=== PATIENT | female | born 1975 | race Caucasian/White ===

== ENCOUNTER 2018-01-08 09:15 | Emergency (ER) | payer OTHER ==
[2018-01-08] MEDS ORDERED: Ketorolac Tromethamine 30 MG/ML VIAL ONE (10:34)
--- NOTE | 2018-01-08 10:51 | RAD ---
TWO VIEW CHEST: Comparison: None. Indication: Chest pain, left rib pain for two months. FINDINGS: There is no consolidation, effusion, or pneumothorax. No free air beneath the hemidiaphragms. Cardiac silhouette is normal in size. Osseous structures are intact. IMPRESSION: No focal consolidation. POS: [facility]
--- NOTE | 2018-01-10 19:54 | EKG ---
Test Reason : Blood Pressure : / mmHG Vent. Rate : 063 BPM Atrial Rate : 063 BPM P-R Int : 126 ms QRS Dur : 102 ms QT Int : 406 ms P-R-T Axes : 046 032 041 degrees QTc Int : 415 ms Normal sinus rhythm Normal ECG Confirmed by GREGORIO TOPETE DO ([id number]), assignment editor HARSH MARTINEZ ([id number] on 01/10/2018 7:53:40 PM Referred By: Confirmed By:GREGORIO TOPETE DO
== END 2018-01-08 11:13 | disposition home or self-care (01) ==
LOC: ERS 09:15
DX: R07.81 Pleurodynia (principal); I10 Essential (primary) hypertension; F17.210 Nicotine dependence, cigarettes, uncomplicated; Z79.899 Other long term (current) drug therapy
CPT/HCPCS: 71046; 93005; 96372; J1885